=== PATIENT | male | born 1985 | race Caucasian/White ===

== ENCOUNTER 2020-09-25 18:30 | Emergency (ER) | payer OTHER ==
[~2020-09-25] VITALS: Ht 165.1 cm; Wt 77.1 kg
[~2020-09-25 18:30] MED LIST: AMOX500 PO; BACPOLTO30 TP; OXYACE5T PO; TRAM50 PO; Ultram50 MG PO
== END 2020-09-25 20:54 | disposition home or self-care (01) ==
LOC: ER 18:30
DX: S40.021A Contusion of right upper arm, initial encounter (principal); F17.290 Nicotine dependence, other tobacco product, uncomplicated; Z88.1 Allergy status to other antibiotic agents; Z88.2 Allergy status to sulfonamides; Z23 Encounter for immunization; W22.8XXA Striking against or struck by other objects, initial encounter; Y93.89 Activity, other specified
CPT/HCPCS: 73080; 90471; 90714; 99283-25